=== PATIENT | male | born 1975 | race Caucasian/White ===

== ENCOUNTER 2016-06-04 12:46 | Inpatient (IN) | payer OTHER ==
[~2016-06-04] VITALS: Ht 182.9 cm; Wt 119.1 kg
[2016-06-04] VITALS (11 sets, daily range): BP systolic 110–146; BP diastolic 53–76
[~2016-06-04 12:46] MED LIST: EXCEDRIN MIGRA1 EACH PO; MOTRIN IB200 MG
[2016-06-04 13:55] LABS: CHLORIDE 105 mEq/L (99-109); POTASSIUM 4.1 mEq/L (3.7-5.4); SODIUM 135 mEq/L (136-147)
[2016-06-04 13:58] LABS: GLUCOSE 173 mg/dL (70-99)
[2016-06-04 13:59] LABS: ANION GAP 10 MEQ/L (2-14); HEMATOCRIT 17.3 % (38.0-50.0); MCH 19.8 PG (29.0-34.0); MCHC 27.2 G/DL (30.0-36.0); MEAN PLAT.VOLUME 10.7 uM^3 (9.0-12.4); PLATELET COUNT 86 K/uL (156-360); RBC DIS.WIDTH-CV 25.2 % (11.8-14.6); RED BLOOD COUNT 2.37 M/uL (4.00-5.50); WHITE BLOOD COUNT 9.9 K/uL (4.1-10.2)
[2016-06-04 14:00] LABS: TOTAL BILIRUBIN 0.3 mg/dL (0.0-1.0)
[2016-06-04 14:01] LABS: ALKALINE PHOSPHATASE 116 IU/L (3-129); GFR ESTIMATE (CALCULATED) > 59 mL/min/
[2016-06-04 14:02] LABS: UREA NITROGEN (BUN) 22 mg/dL (9-23)
[2016-06-04 15:08] LABS: HEMATOCRIT 17.5 % (38.0-50.0); MCH 19.5 PG (29.0-34.0); MCHC 26.9 G/DL (30.0-36.0); MCV 72.6 FL (86-99); RBC DIS.WIDTH-CV 25.1 % (11.8-14.6); RBC DIS.WIDTH-SD 64.7 % (39-53); RED BLOOD COUNT 2.41 M/uL (4.00-5.50); WHITE BLOOD COUNT 10.8 K/uL (4.1-10.2)
[2016-06-04 16:06] LABS: ABS NEUTROPHIL COUNT 7.8; ANISOCYTOSIS 3+; ATYPICAL LYMPHOCYTE 0.9 %; BASOPHILS 0.9 %; EOSINOPHIL ABS CT 0; HYPOCHROMASIA 2+; INSTRUMENT ABS NEUTROPHIL CT 8.4 K/uL; LYMPHOCYTES 19.3 % (15.0-45.0); MEAN PLAT.VOLUME 10.4 uM^3 (9.0-12.4); METAMYELOCYTES 0.9 %; MICROCYTOSIS 2+; PLAT.SUFFICIENCY DECREASED; PLATELET COUNT 93 K/uL (156-360); POIKILOCYTOSIS 1+; SEG.NEUTROPHILS 71.9 % (46.0-76.0); SMUDGE CELLS 0.9
[2016-06-04] MEDS ORDERED: TYLENOL PM1 CAPLET PO (16:30)
[2016-06-04 17:58] LABS: IMM.RETIC FRACTION 25.3 % (3-19); RETIC HGB EQUIVALENT 24.5 (28-36); RETICULOCYTE COUNT 1.3 % (0.5-1.8)
[2016-06-04 18:12] LABS: SERUM ETHYL ALCOHOL < 10 mg/dL
[2016-06-04 18:28] LABS: IRON 40 MCG/DL (35-150)
[2016-06-04 18:45] LABS: C-REACTIVE PROTEIN 20.2 MG/L (0-10)
[2016-06-04 18:50] LABS: FERRITIN 6 NG/ML (22-322)
[2016-06-05] VITALS (15 sets, daily range): BP systolic 119–149; BP diastolic 58–84
[2016-06-05 06:48] LABS: PROTHROMBIN TIME 10.6 (9.2-11.2); PTT 27.5 (25-32)
[2016-06-05 07:07] LABS: HEMATOCRIT 21.4 % (38.0-50.0); MCH 23.3 PG (29.0-34.0); MCHC 30.4 G/DL (30.0-36.0); RBC DIS.WIDTH-CV 23.4 % (11.8-14.6); RBC DIS.WIDTH-SD 64.1 % (39-53); RED BLOOD COUNT 2.79 M/uL (4.00-5.50); WHITE BLOOD COUNT 8.7 K/uL (4.1-10.2)
[2016-06-05 07:21] LABS: MCV 76.7 FL (86-99)
[2016-06-05 09:31] LABS: ANION GAP 9 MEQ/L (2-14); CHLORIDE 105 MEQ/L (99-109); POTASSIUM 3.8 MEQ/L (3.7-5.4); SAMPLE HEMOLYSIS CHECK 0; SAMPLE ICTERIC CHECK 0; SAMPLE LIPEMIA CHECK 0; SODIUM 135 MEQ/L (136-147)
[2016-06-05 09:36] LABS: GFR ESTIMATE (CALCULATED) > 59 mL/min/; GLUCOSE 127 mg/dL (70-99); UREA NITROGEN (BUN) 12 mg/dL (9-23)
[2016-06-05 17:22] LABS: PLATELET COUNT 56 K/uL (156-360)
[2016-06-05 19:40] LABS: HEMATOCRIT 24.9 % (38.0-50.0); MCV 77.8 FL (86-99)
[2016-06-06 07:31] LABS: HEMATOCRIT 24.3 % (38.0-50.0); MCH 23.8 PG (29.0-34.0); MCHC 30.5 G/DL (30.0-36.0); MCV 78.1 FL (86-99); RBC DIS.WIDTH-CV 22.5 % (11.8-14.6); RBC DIS.WIDTH-SD 62.6 % (39-53); RED BLOOD COUNT 3.11 M/uL (4.00-5.50)
[2016-06-06 07:38] LABS: ANION GAP 10 MEQ/L (2-14); CHLORIDE 105 MEQ/L (99-109); GFR ESTIMATE (CALCULATED) > 59 mL/min/; GLUCOSE 127 mg/dL (70-99); POTASSIUM 3.6 MEQ/L (3.7-5.4); SAMPLE HEMOLYSIS CHECK 0; SAMPLE ICTERIC CHECK 0; SAMPLE LIPEMIA CHECK 0; SODIUM 138 MEQ/L (136-147); UREA NITROGEN (BUN) 8 mg/dL (9-23)
[2016-06-06 08:08] LABS: EOSINOPHIL (%) 0.9 % (0-5); EOSINOPHIL COUNT 0.1 K/uL (0-0.3); IMM.PLATELET FRACTION 6.9 (1-7); IMMATURE GRANULOCYTE (%) 0.2 % (0.0-0.7); INSTRUMENT ABS NEUTROPHIL CT 6.6 K/uL; LYMPHOCYTE COUNT 1.4 K/uL (1.0-2.8); MONOCYTE (%) 10.6 % (3-12); NEUTROPHIL (%) 72.8 % (45-76); NEUTROPHIL COUNT 6.6 K/uL (1.8-6.4)
[2016-06-06 08:15] LABS: PLAT.SUFFICIENCY VERY DECREASED; PLATELET COUNT 33 K/uL (156-360)
[2016-06-06 08:33] VITALS: BP 124/60
[2016-06-06 10:57] LABS: ADD MIUA? NO; BILIRUBIN NEGATIVE; BLOOD NEGATIVE; COLOR YELLOW ((YELLOW)); GLUCOSE (STRIP) 150; KETONES NEGATIVE; LEUKOCYTES NEGATIVE; NITRITE NEGATIVE; PROTEIN (STRIP) NEGATIVE; SPECIFIC GRAVITY 1.011 (1.000-1.030); UROBILINOGEN 0.2 MG/DL (0.2-1.0)
[2016-06-06 12:07] LABS: BACTERIA RARE /HPF; EPITHELIAL CELLS NONE SEEN /HPF; MUCUS 1+ /LPF; RED BLOOD CELLS 0-5 /HPF (0-5); WHITE BLOOD CELLS 0-5 /HPF (0-5)
[2016-06-06 16:48] VITALS: BP 132/59
[2016-06-06 20:19] VITALS: BP 131/74
[2016-06-06 23:47] VITALS: BP 141/77
[2016-06-07] VITALS (7 sets, daily range): BP systolic 128–162; BP diastolic 66–80
[2016-06-07 06:24] LABS: ANION GAP 9 MEQ/L (2-14); CHLORIDE 105 MEQ/L (99-109); GFR ESTIMATE (CALCULATED) > 59 mL/min/; GLUCOSE 120 mg/dL (70-99); LACTATE DEHYDROGENASE 164 IU/L (20-246); POTASSIUM 3.6 MEQ/L (3.7-5.4); SAMPLE HEMOLYSIS CHECK 0; SAMPLE ICTERIC CHECK 0; SAMPLE LIPEMIA CHECK 0; SODIUM 139 MEQ/L (136-147); UREA NITROGEN (BUN) 7 mg/dL (9-23)
[2016-06-07 06:39] LABS: HEMATOCRIT 24.9 % (38.0-50.0); MCH 24.2 PG (29.0-34.0); MCHC 30.1 G/DL (30.0-36.0); MCV 80.3 FL (86-99); RBC DIS.WIDTH-CV 23.4 % (11.8-14.6); RBC DIS.WIDTH-SD 66.4 % (39-53); WHITE BLOOD COUNT 8.2 K/uL (4.1-10.2)
[2016-06-07 07:41] LABS: EOSINOPHIL (%) 1.6 % (0-5); EOSINOPHIL COUNT 0.1 K/uL (0-0.3); IMM.PLATELET FRACTION 16.6 (1-7); IMMATURE GRANULOCYTE (%) 0.6 % (0.0-0.7); IMMATURE GRANULOCYTE COUNT 0.1 K/uL; INSTRUMENT ABS NEUTROPHIL CT 5.8 K/uL; LYMPHOCYTE COUNT 1.3 K/uL (1.0-2.8); MONOCYTE (%) 10.4 % (3-12); MONOCYTE COUNT 0.9 K/uL (0-0.8); NEUTROPHIL (%) 70.9 % (45-76); NEUTROPHIL COUNT 5.8 K/uL (1.8-6.4); PLAT.SUFFICIENCY DECREASED; PLATELET COUNT 32 K/uL (156-360)
[2016-06-08 06:45] VITALS: BP 149/87
[2016-06-08 07:25] LABS: HEMATOCRIT 25.8 % (38.0-50.0); MCH 24.4 PG (29.0-34.0); MCHC 30.2 G/DL (30.0-36.0); MCV 80.6 FL (86-99); NRBC (%) 0.5 /100 WBC (0-0); RBC DIS.WIDTH-CV 23.2 % (11.8-14.6); WHITE BLOOD COUNT 8.5 K/uL (4.1-10.2)
[2016-06-08 07:29] LABS: ANION GAP 11 MEQ/L (2-14); CHLORIDE 102 MEQ/L (99-109); GFR ESTIMATE (CALCULATED) > 59 mL/min/; GLUCOSE 121 mg/dL (70-99); POTASSIUM 3.8 MEQ/L (3.7-5.4); SAMPLE HEMOLYSIS CHECK 0; SAMPLE ICTERIC CHECK 0; SAMPLE LIPEMIA CHECK 0; SODIUM 139 MEQ/L (136-147); UREA NITROGEN (BUN) 7 mg/dL (9-23)
[2016-06-08 07:44] LABS: ABS NEUTROPHIL COUNT 6.8; ANISOCYTOSIS 2+; ATYPICAL LYMPHOCYTE 1.8 %; EOSINOPHIL ABS CT 0.2; EOSINOPHILS 1.8 % (0-5.0); HYPOCHROMASIA 3+; IMM.PLATELET FRACTION 14.7 (1-7); INSTRUMENT ABS NEUTROPHIL CT 5.8 K/uL; LYMPHOCYTES 9.8 % (15.0-45.0); MICROCYTOSIS 2+; POLYCHROMASIA 1+; SEG.NEUTROPHILS 79.5 % (46.0-76.0); TARGET CELLS 1+
[2016-06-08 07:45] LABS: PLAT.SUFFICIENCY VERY DECREASED; PLATELET COUNT 49 K/uL (156-360)
[2016-06-08 23:19] VITALS: BP 138/74
[2016-06-09 06:43] LABS: EOSINOPHIL (%) 3.4 % (0-5); EOSINOPHIL COUNT 0.3 K/uL (0-0.3); HEMATOCRIT 27.4 % (38.0-50.0); IMMATURE GRANULOCYTE (%) 1.6 % (0.0-0.7); IMMATURE GRANULOCYTE COUNT 0.1 K/uL; INSTRUMENT ABS NEUTROPHIL CT 5.1 K/uL; LYMPHOCYTE COUNT 1.4 K/uL (1.0-2.8); MCHC 29.6 G/DL (30.0-36.0); MCV 81.1 FL (86-99); MONOCYTE (%) 13.8 % (3-12); MONOCYTE COUNT 1.1 K/uL (0-0.8); NEUTROPHIL (%) 63.4 % (45-76); NEUTROPHIL COUNT 5.1 K/uL (1.8-6.4); NRBC (%) 0.7 /100 WBC (0-0); RBC DIS.WIDTH-CV 23.8 % (11.8-14.6); RBC DIS.WIDTH-SD 66.3 % (39-53); RED BLOOD COUNT 3.38 M/uL (4.00-5.50)
[2016-06-09 06:56] LABS: PLAT.SUFFICIENCY DECREASED; PLATELET COUNT 89 K/uL (156-360)
[2016-06-09 08:00] VITALS: BP 136/73
[2016-06-09 19:46] VITALS: BP 107/65
[2016-06-09 23:07] VITALS: BP 122/71
[2016-06-10 07:46] LABS: HEMATOCRIT 27.9 % (38.0-50.0); MCH 24.9 PG (29.0-34.0); MCHC 30.5 G/DL (30.0-36.0); MCV 81.8 FL (86-99); NRBC (%) 0.5 /100 WBC (0-0); RBC DIS.WIDTH-CV 23.5 % (11.8-14.6); RBC DIS.WIDTH-SD 66.7 % (39-53); RED BLOOD COUNT 3.41 M/uL (4.00-5.50); WHITE BLOOD COUNT 7.8 K/uL (4.1-10.2)
[2016-06-10 07:49] LABS: PLATELET COUNT 143 K/uL (156-360)
[2016-06-10 08:45] VITALS: BP 110/56
[2016-06-10 13:10] LABS: POC NON-PRINT COM 1 ND
[2016-06-10 13:34] VITALS: BP 103/63
[2016-06-10 22:50] VITALS: BP 113/57
[2016-06-11 07:30] LABS: EOSINOPHIL (%) 3.4 % (0-5); EOSINOPHIL COUNT 0.3 K/uL (0-0.3); HEMATOCRIT 28.8 % (38.0-50.0); IMMATURE GRANULOCYTE COUNT 0.1 K/uL; INSTRUMENT ABS NEUTROPHIL CT 5.1 K/uL; LYMPHOCYTE COUNT 1.5 K/uL (1.0-2.8); MCH 24.3 PG (29.0-34.0); MCHC 29.2 G/DL (30.0-36.0); MCV 83.2 FL (86-99); MONOCYTE (%) 12.6 % (3-12); NEUTROPHIL (%) 64.1 % (45-76); NEUTROPHIL COUNT 5.1 K/uL (1.8-6.4); NRBC (%) 0.3 /100 WBC (0-0); RBC DIS.WIDTH-CV 23.3 % (11.8-14.6); RBC DIS.WIDTH-SD 67.8 % (39-53); RED BLOOD COUNT 3.46 M/uL (4.00-5.50)
[2016-06-11 07:35] LABS: PLATELET COUNT 208 K/uL (156-360)
[2016-06-11 07:36] LABS: ANION GAP 9 MEQ/L (2-14); CHLORIDE 102 MEQ/L (99-109); GFR ESTIMATE (CALCULATED) > 59 mL/min/; GLUCOSE 110 mg/dL (70-99); MAGNESIUM 2.1 mg/dl (1.3-2.7); SAMPLE HEMOLYSIS CHECK 0; SAMPLE ICTERIC CHECK 0; SAMPLE LIPEMIA CHECK 0; SODIUM 141 MEQ/L (136-147); UREA NITROGEN (BUN) 9 mg/dL (9-23)
[2016-06-11 07:38] LABS: POTASSIUM 4.6 MEQ/L (3.7-5.4)
[2016-06-11 08:21] VITALS: BP 124/55
[2016-06-11 11:53] VITALS: BP 126/58
[2016-06-11 15:53] VITALS: BP 119/58
[2016-06-11 23:12] VITALS: BP 125/60
[2016-06-12 06:51] LABS: ANION GAP 11 MEQ/L (2-14); CHLORIDE 102 MEQ/L (99-109); GFR ESTIMATE (CALCULATED) > 59 mL/min/; GLUCOSE 98 mg/dL (70-99); MAGNESIUM 2.2 mg/dl (1.3-2.7); POTASSIUM 4.3 MEQ/L (3.7-5.4); SAMPLE HEMOLYSIS CHECK 0; SAMPLE ICTERIC CHECK 0; SAMPLE LIPEMIA CHECK 0; SODIUM 141 MEQ/L (136-147); UREA NITROGEN (BUN) 11 mg/dL (9-23)
[2016-06-12 07:00] LABS: EOSINOPHIL (%) 3.3 % (0-5); EOSINOPHIL COUNT 0.3 K/uL (0-0.3); HEMATOCRIT 29.8 % (38.0-50.0); IMMATURE GRANULOCYTE COUNT 0.1 K/uL; INSTRUMENT ABS NEUTROPHIL CT 4.9 K/uL; MCH 23.8 PG (29.0-34.0); MCHC 28.9 G/DL (30.0-36.0); MCV 82.5 FL (86-99); MEAN PLAT.VOLUME 11.7 uM^3 (9.0-12.4); MONOCYTE (%) 11.3 % (3-12); MONOCYTE COUNT 0.9 K/uL (0-0.8); NEUTROPHIL (%) 59.3 % (45-76); NEUTROPHIL COUNT 4.9 K/uL (1.8-6.4); RBC DIS.WIDTH-SD 69.1 % (39-53); RED BLOOD COUNT 3.61 M/uL (4.00-5.50); WHITE BLOOD COUNT 8.2 K/uL (4.1-10.2)
[2016-06-12 07:04] LABS: PLATELET COUNT 305 K/uL (156-360)
[2016-06-12 07:19] VITALS: BP 121/59
[2016-06-12 15:48] VITALS: BP 128/59
[2016-06-12 22:43] VITALS: BP 128/64
[2016-06-13] MEDS ORDERED: OXYCODONE HCL10 MG PO (07:57)
[2016-06-13 08:27] VITALS: BP 96/52
[2016-06-13 16:58] VITALS: BP 119/59
[2016-06-13 23:06] VITALS: BP 117/53
[2016-06-14 11:32] LABS: POINT-OF-CARE METER ID UU13113725
[2016-06-14 16:05] VITALS: BP 129/65
[2016-06-14 23:25] VITALS: BP 111/56
[2016-06-15 07:23] VITALS: BP 125/59
[2016-06-15 16:15] VITALS: BP 126/59
[2016-06-15 23:10] VITALS: BP 121/63
[2016-06-16 07:37] VITALS: BP 121/61
[2016-06-16 16:05] VITALS: BP 125/69
[2016-06-16 22:52] VITALS: BP 115/54
[2016-06-17 07:38] VITALS: BP 120/58
[2016-06-17 15:31] VITALS: BP 138/101
[2016-06-17] MEDS ORDERED: OXYCODONE HCL5 MG PO (16:03)
[2016-06-17] MEDS ORDERED: GABAPENTIN600 MG PO (16:03)
[2016-06-17] MEDS ORDERED: FERROUS SULFAT325 MG PO (16:03)
[2016-06-17] MEDS ORDERED: DOCUSATE SODIU100 MG PO (16:03)
[2016-06-17] MEDS ORDERED: BACTROBAN OINTM22 GM TP (16:03)
[2016-06-17] MEDS ORDERED: PROTONIX40 MG PO (16:26)
== END 2016-06-17 19:00 | disposition home or self-care (01) | DRG 812 ==
LOC: EME 12:46 → 5EAST 17:18 → EDOF 17:18 → 5EAST 20:55
PROVIDERS: Emergency Medicine; Internal Medicine; Internal Medicine Hematology & Oncology; Specialist
PROC: 30233N1 Transfusion of Nonautologous Red Blood Cells into Peripheral Vein, Percutaneous Approach (ICD-10-PCS; principal; 2016-06-05)
PROC: 0HDLXZZ Extraction of Left Lower Leg Skin, External Approach (ICD-10-PCS; 2016-06-12)
PROC: 0HDKXZZ Extraction of Right Lower Leg Skin, External Approach (ICD-10-PCS; 2016-06-12)
DX: D50.9 Iron deficiency anemia, unspecified (principal); L03.115 Cellulitis of right lower limb; L03.116 Cellulitis of left lower limb; L97.919 Non-pressure chronic ulcer of unspecified part of right lower leg with unspecified severity; L97.929 Non-pressure chronic ulcer of unspecified part of left lower leg with unspecified severity; R60.0 Localized edema; F17.210 Nicotine dependence, cigarettes, uncomplicated; L01.1 Impetiginization of other dermatoses; D69.6 Thrombocytopenia, unspecified; I73.9 Peripheral vascular disease, unspecified; L30.9 Dermatitis, unspecified; R06.02 Shortness of breath; M79.661 Pain in right lower leg; M79.662 Pain in left lower leg; N28.1 Cyst of kidney, acquired; Z91.013 Allergy to seafood; Z91.040 Latex allergy status; F32.9 Major depressive disorder, single episode, unspecified; E66.9 Obesity, unspecified; I83.019 Varicose veins of right lower extremity with ulcer of unspecified site; I83.029 Varicose veins of left lower extremity with ulcer of unspecified site
CPT/HCPCS: 71020; 74176; 74183; 76770; 80048; 80053; 80202; 81003; 82272; 82607; 82728; 82746; 82948; 83540; 83615; 83735; 84466; 85007; 85014; 85018; 85025; 85025 91; 85027; 85045; 85610; 85730; 86140; 86850; 86900; 86901; 86920; 87040; 87070; 87075; 87205; 88305; 88342 TC; 93005; 93970; 94799; 97530 GO; 97530 GP; 99281; 99285; A6212; A6260; G0480; J0690; J1170; J1650; J2250; J2270; J2405; J2543; J3010; J3370; J7030; J7050; P9016; S0028

== ENCOUNTER 2016-06-21 22:06 | Emergency (ER) | payer OTHER ==
[~2016-06-21] VITALS: Ht 182.9 cm; Wt 118.0 kg
[~2016-06-21 22:06] MED LIST changes: +BACTROBAN OINTM22 GM TP; +DOCUSATE SODIU100 MG PO; +FERROUS SULFAT325 MG PO; +GABAPENTIN600 MG PO; +OXYCODONE HCL10 MG PO; +OXYCODONE HCL5 MG PO; +PROTONIX40 MG PO; +TYLENOL PM1 CAPLET PO
[2016-06-21] MEDS ORDERED: ROXICODONE15 MG PO (22:51)
[2016-06-21 23:25] VITALS: BP 118/58
== END 2016-06-21 23:27 | disposition home or self-care (01) ==
LOC: EXP 22:06 → EME 22:06 → EXP 23:27
DX: M79.605 Pain in left leg (principal); M79.604 Pain in right leg; Z76.0 Encounter for issue of repeat prescription
CPT/HCPCS: 99281; 99283

== ENCOUNTER 2016-06-24 17:31 | Emergency (ER) | payer OTHER ==
[~2016-06-24] VITALS: Ht 182.9 cm; Wt 110.4 kg
[~2016-06-24 17:31] MED LIST changes: +ROXICODONE15 MG PO
[2016-06-24] MEDS ORDERED: OXAYDO5 MG PO (18:46)
[2016-06-24 19:02] VITALS: BP 140/64
== END 2016-06-24 19:03 | disposition home or self-care (01) ==
LOC: EME 17:31
DX: L97.919 Non-pressure chronic ulcer of unspecified part of right lower leg with unspecified severity (principal); Z91.013 Allergy to seafood; Z91.040 Latex allergy status; Z88.6 Allergy status to analgesic agent; Z87.891 Personal history of nicotine dependence
CPT/HCPCS: 99281; 99284

== ENCOUNTER 2016-08-12 15:44 | Inpatient (IN) | payer OTHER ==
[~2016-08-12] VITALS: Ht 182.9 cm; Wt 113.0 kg
[~2016-08-12 15:44] MED LIST changes: +OXAYDO5 MG PO
[2016-08-12 18:49] LABS: EOSINOPHIL (%) 4.5 % (0-5); EOSINOPHIL COUNT 0.3 K/uL (0-0.3); HEMATOCRIT 41.2 % (38.0-50.0); IMMATURE GRANULOCYTE (%) 0.2 % (0.0-0.7); INSTRUMENT ABS NEUTROPHIL CT 3.1 K/uL; MCH 27.2 PG (29.0-34.0); MCHC 31.8 G/DL (30.0-36.0); MCV 85.7 FL (86-99); MEAN PLAT.VOLUME 10.8 uM^3 (9.0-12.4); MONOCYTE (%) 7.1 % (3-12); MONOCYTE COUNT 0.4 K/uL (0-0.8); NEUTROPHIL (%) 53.6 % (45-76); NEUTROPHIL COUNT 3.1 K/uL (1.8-6.4); RBC DIS.WIDTH-CV 17.5 % (11.8-14.6); RBC DIS.WIDTH-SD 54.8 % (39-53); RED BLOOD COUNT 4.81 M/uL (4.00-5.50); WHITE BLOOD COUNT 5.7 K/uL (4.1-10.2)
[2016-08-12 18:53] LABS: PLATELET COUNT 189 K/uL (156-360)
[2016-08-12 19:00] LABS: CHLORIDE 106 mEq/L (99-109); SODIUM 138 mEq/L (136-147)
[2016-08-12 19:02] LABS: GLUCOSE 88 mg/dL (70-99)
[2016-08-12 19:03] LABS: ANION GAP 9 MEQ/L (2-14)
[2016-08-12 19:04] LABS: TOTAL BILIRUBIN 0.3 mg/dL (0.0-1.0)
[2016-08-12 19:06] LABS: ALKALINE PHOSPHATASE 119 IU/L (3-129); GFR ESTIMATE (CALCULATED) > 59 mL/min/
[2016-08-12 19:07] LABS: UREA NITROGEN (BUN) 12 mg/dL (9-23)
[2016-08-12] MEDS ORDERED: HYDROCODON-ACE1 EAC7 PO (20:19)
[2016-08-12 23:21] VITALS: BP 145/69
[2016-08-13 07:00] VITALS: BP 114/60
[2016-08-13 07:11] LABS: EOSINOPHIL (%) 5.6 % (0-5); EOSINOPHIL COUNT 0.2 K/uL (0-0.3); HEMATOCRIT 37.9 % (38.0-50.0); IMMATURE GRANULOCYTE (%) 0.2 % (0.0-0.7); INSTRUMENT ABS NEUTROPHIL CT 1.8 K/uL; LYMPHOCYTE COUNT 1.9 K/uL (1.0-2.8); MCH 27.6 PG (29.0-34.0); MCHC 30.9 G/DL (30.0-36.0); MCV 89.4 FL (86-99); MEAN PLAT.VOLUME 11.2 uM^3 (9.0-12.4); MONOCYTE COUNT 0.4 K/uL (0-0.8); NEUTROPHIL (%) 40.7 % (45-76); NEUTROPHIL COUNT 1.8 K/uL (1.8-6.4); PLATELET COUNT 160 K/uL (156-360); RBC DIS.WIDTH-CV 17.8 % (11.8-14.6); RBC DIS.WIDTH-SD 57.3 % (39-53); RED BLOOD COUNT 4.24 M/uL (4.00-5.50); WHITE BLOOD COUNT 4.3 K/uL (4.1-10.2)
[2016-08-13 07:34] LABS: ANION GAP 6 MEQ/L (2-14); CHLORIDE 108 MEQ/L (99-109); GFR ESTIMATE (CALCULATED) > 59 mL/min/; GLUCOSE 90 mg/dL (70-99); POTASSIUM 4.6 MEQ/L (3.7-5.4); SAMPLE HEMOLYSIS CHECK 0; SAMPLE ICTERIC CHECK 0; SAMPLE LIPEMIA CHECK 0; SODIUM 142 MEQ/L (136-147); UREA NITROGEN (BUN) 12 mg/dL (9-23)
[2016-08-13 15:21] VITALS: BP 127/68
[2016-08-13 19:56] VITALS: BP 159/85
[2016-08-13 23:06] VITALS: BP 141/80
[2016-08-14 07:06] VITALS: BP 133/79
[2016-08-14 09:29] LABS: Estimated Average Glucose 108 mg/dL (70-123); HEMOGLOBIN A1c (GLYCOHEMOGLOB) 5.4 % HGB (Below 5.7)
[2016-08-14 10:14] VITALS: BP 121/72
[2016-08-14] MEDS ORDERED: AUGMENTIN875 MG PO (12:08)
[2016-08-14] MEDS ORDERED: HYDROCODON-ACE1 EAC7 PO (12:08)
[2016-08-14] MEDS ORDERED: RELIEF KNEE CL1 EACH MC (12:09)
== END 2016-08-14 13:10 | disposition home or self-care (01) | DRG 603 ==
LOC: EME 15:44 → EDOF 21:53 → 5EAST 21:53 → EDOF 21:53 → 5EAST 23:15
PROVIDERS: Emergency Medicine; Hospitalist
DX: L03.115 Cellulitis of right lower limb (principal); L97.911 Non-pressure chronic ulcer of unspecified part of right lower leg limited to breakdown of skin; G89.29 Other chronic pain; I87.2 Venous insufficiency (chronic) (peripheral); I87.8 Other specified disorders of veins; L03.116 Cellulitis of left lower limb; Z68.33 Body mass index [BMI] 33.0-33.9, adult; Z86.718 Personal history of other venous thrombosis and embolism; F17.210 Nicotine dependence, cigarettes, uncomplicated; R63.0 Anorexia; Z79.891 Long term (current) use of opiate analgesic; L97.921 Non-pressure chronic ulcer of unspecified part of left lower leg limited to breakdown of skin
CPT/HCPCS: 80048; 80053; 83036; 83605; 83880; 85025; 93970; 99281; 99285; J0295; J1650; J1885; J2270; J2405; J3370; J7030; J7050